=== PATIENT | female | born 2000 | race African-American/Black ===

== ENCOUNTER 2023-09-02 20:01 | Emergency (ER) | payer OTHER ==
[2023-09-02 20:15] VITALS: TEMP 98.3; BMI 24.1
[2023-09-02] MEDS ORDERED: levETIRAcetam 500 MG/5 ML INJECTION VIAL IVPB ONE (21:11)
[2023-09-02] MEDS ORDERED: DEXAMETHASONE SOD PHOSPHATE 10 MG/1 ML VIAL ONE (21:11)
[2023-09-02] MEDS ORDERED: ONDANSETRON 4 MG/2 ML VIAL ONE (21:12)
[2023-09-02 21:15] LABS: BASO % 0.3 % (0-2.0); EOS % 0.1 % (0-4.5); HEMATOCRIT 38.4 % (32.4-45.2); HEMOGLOBIN 12.9 GM/dL (10.7-15.3); LYMPH % 10.5 % (8-40); MCH 29.7 pg (25.7-33.7); MCHC 33.6 g/dl (32.0-36.0); MEAN CELL VOLUME 88.6 fl (80-96); MEAN PLT VOLUME 9.4 fl (7.5-11.1); MONO % 5.4 % (3.8-10.2); NEUT % 83.7 % (42.8-82.8); PLATELET COUNT 268 10^3/uL (134-434); RBC 4.34 M/mm3 (3.60-5.2); RDW 13.6 % (11.6-15.6); WHITE BLOOD COUNT 11.6 K/mm3 (4.0-10.0)
[2023-09-02] MEDS: ONDANSETRON 4 MG/2 ML VIAL IVPUSH ONE (21:18)
[2023-09-02] MEDS: DEXAMETHASONE SOD PHOSPHATE 10 MG/1 ML VIAL IVPUSH ONE (21:18)
[2023-09-02] MEDS: levETIRAcetam 500 MG/5 ML INJECTION VIAL IVPB ONE (21:24)
[2023-09-02 21:26] LABS: INR 1.34 (0.83-1.09); PROTHROMBIN TIME (PATIENT) 15.5 SEC (9.7-13.0)
[2023-09-02 21:29] LABS: ACTIVATED PTT 28.9 SECONDS (25.2-36.5)
[2023-09-02 21:33] LABS: POTASSIUM 3.4 mmol/L (3.5-5.1)
[2023-09-02 21:35] LABS: CALCIUM 7.8 mg/dL (8.5-10.1)
[2023-09-02 21:36] LABS: ALBUMIN 3.6 g/dl (3.4-5.0); BLOOD UREA NITROGEN 7.7 mg/dL (7-18)
[2023-09-02 21:39] LABS: CREATININE 0.7 mg/dL (0.55-1.3)
[2023-09-02 21:41] LABS: BILIRUBIN,TOTAL 0.5 mg/dL (0.2-1); TOT PROT 6.1 g/dl (6.4-8.2)
[2023-09-02 21:44] LABS: N-TERMINAL BNP 43.8 pg/ml (5-125)
[2023-09-02 22:13] VITALS: BP 110/74; RESP 13
[2023-09-02 22:30] VITALS: PULSE 70
== END 2023-09-02 22:31 | disposition short-term general hospital (02) ==
LOC: JER 20:01
PROC: 3E033NZ Introduction of Analgesics, Hypnotics, Sedatives into Peripheral Vein, Percutaneous Approach (ICD-10-PCS; principal; 2023-09-02)
PROC: 3E033GC Introduction of Other Therapeutic Substance into Peripheral Vein, Percutaneous Approach (ICD-10-PCS; 2023-09-02)
PROC: 3E033GC Introduction of Other Therapeutic Substance into Peripheral Vein, Percutaneous Approach (ICD-10-PCS; 2023-09-02)
DX: R41.0 Disorientation, unspecified (principal); I61.9 Nontraumatic intracerebral hemorrhage, unspecified
CPT/HCPCS: 36415; 70450-TC; 80053; 83880; 84484; 85025; 85610; 85730; 93005; 93010; 96374; 96375; 99285-25; J1100